=== PATIENT | female | born 1960 | race Asian ===

== ENCOUNTER 2017-06-01 12:19 | Day surgery (SDC) | payer OTHER ==
[~2017-06-01] VITALS: Ht 157.5 cm; Wt 57.3 kg
[2017-06-01 14:06] VITALS: Ht 157.5 cm; Wt 57.3 kg
[2017-06-01 14:23] VITALS: BP 110/55; PULSE 66; RESP 20
--- NOTE | 2017-06-01 14:38 | OPPN ---
Date/Time of Note Date/Time of Note DATE: 06/01/17 TIME: 14:36 Normal colonoscopy follow-up with primary MD repeat colonoscopy 10 years Operative Report Preoperative Diagnosis Screening colonoscopy Postoperative Diagnosis Normal colonoscopy Operation/Procedure Performed Colonoscopy Surgeon see signature line assistant coach None Anesthesia: moderate sedation (Versed 3/fentanyl 75) Estimated blood loss: none Transfusion Required none Specimen None Grafts/Implants none Complications none MORE CAMPOS MD Jun 01, 2017 14:38
--- NOTE | 2017-06-01 14:38 | OPPN ---
Date/Time of Note Date/Time of Note DATE: 06/01/17 TIME: 14:36 Normal colonoscopy follow-up with primary MD repeat colonoscopy 10 years Operative Report Preoperative Diagnosis Screening colonoscopy Postoperative Diagnosis Normal colonoscopy Operation/Procedure Performed Colonoscopy Surgeon see signature line assistant store manager trainee None Anesthesia: moderate sedation (Versed 3/fentanyl 75) Estimated blood loss: none Transfusion Required none Specimen None Grafts/Implants none Complications none MORE CAMPOS MD Jun 01, 2017 14:38
[2017-06-01] MEDS ORDERED: MIDAZOLAM 1 MG/ML 2 ML INJ ONE ×2 (14:52→14:53)
[2017-06-01] MEDS ORDERED: FENTAnyl 50 MCG/ML VIAL ONE (14:52)
[2017-06-01 15:06] VITALS: BP 135/88; RESP 14
--- NOTE | 2017-06-02 07:20 | GILP ---
DATE OF PROCEDURE: PREOPERATIVE DIAGNOSIS: Screening colonoscopy. PROCEDURE DONE: Colonoscopy. POSTOPERATIVE DIAGNOSES: Normal colonoscopy, normal colon. ANESTHESIA: Moderate sedation and 75 mcg of fentanyl, 3 mg IV Versed. Total moderate sedation vicki e 16 minutes. DESCRIPTION OF PROCEDURE: The patient was put in left lateral decubitus after obtaining informed co nsent, was sedated, monitored on oximetry, EKG, blood pressure, and the patient was sedated, rectal exam done, which was normal. Advanced a pediatric colonoscope all the way to cecum, some seeds were noted in the cecum. This was washed. Appendiceal opening and ileocecal valve were easily identifi ed. Cecum, ascending colon normal. Transverse colon normal. Descending colon, sigmoid colon millicent l. Rectum including retroflexion is normal. Postop, patient had no complication. RECOMMEND: Follow up with primary MD, yearly occult blood and repeat colonoscopy in 10 years. Dictated By: MORE ACOSTA Conf#: [id number] DID#: [id number] CC: Dr. Boggs;*EndCC*
== END 2017-06-01 15:26 | disposition home or self-care (01) ==
LOC: GIL 12:19 → EDSEX 12:19 → GIL 12:25
PROVIDERS: ATTEND Internal Medicine
DX: Z12.11 Encounter for screening for malignant neoplasm of colon (principal)
CPT/HCPCS: 45378; J2250; J3010; Z7610